=== PATIENT | female | born 1945 | race Caucasian/White ===

== ENCOUNTER 2016-03-09 14:57 | Observation (INO) | payer MEDICARE ==
[2016-03-09] MEDS ORDERED: NITROGLYCERIN OINT 1 INCH/GM PACKET TOPICAL STA (15:29)
[2016-03-09] MEDS ORDERED: ASPIRIN 81 MG CHEW PO STA (15:29)
--- NOTE | 2016-03-09 15:32 | ED ---
General Adult HPI - General Chief complaint: Chest Pain Stated complaint: Chest pain Time Seen by Provider: 03/09/16 15:26 Source: patient, family, RN notes reviewed Mode of arrival: ambulatory Limitations: no limitations - History of Present Illness Initial comments: Patient is a pleasant 70-year-old female presenting to the emergency department complaining of chest discomfort. Onset of symptoms was last night. Symptoms worsened around 3:45 AM. Symptoms are mild at this time. Discomfort was tightness however now is only mild heaviness. There was some radiation towards the right side. No associated nausea or diaphoresis. Patient does feel mildly short of breath. No leg pain or swelling. No cough or fever. - Related Data Home Medications Medication Instructions Recorded Confirmed Albuterol Nebulized [Ventolin 2.5 mg INHALATION RT-Q6H PRN 03/09/16 03/09/16 Nebulized] [id number] 1 - 2 tab PO Q6H PRN 03/09/16 03/09/16 [Excedrin] Budesonide [Pulmicort] 0.5 mg INHALATION RT-BID PRN 03/09/16 03/09/16 Cetirizine HCl [Zyrtec] 10 mg PO DAILY 03/09/16 03/09/16 Diclofenac Sodium/Misoprostol 1 tab PO BID PRN 03/09/16 03/09/16 [Diclofenac-Misoprost 75-200 Tb] Docusate [Colace] 100 mg PO BID PRN 03/09/16 03/09/16 Etanercept [Enbrel] 50 mg SQ WE 03/09/16 03/09/16 Fluticasone Nasal [place] [Flonase 1 - 2 spray EA NOSTRIL BID PRN 03/09/16 Nasal [place]] HYDROcodone/APAP 10-325MG [[place] 1 tab PO QID PRN 03/09/16 03/09/16 10-325] Loperamide HCl [Imodium A-D] 2 - 4 mg PO DAILY PRN 03/09/16 03/09/16 Methocarbamol [Robaxin-750] 750 mg PO TID 03/09/16 03/09/16 Methotrexate Sodium [Methotrexate] 20 mg PO WE 03/09/16 03/09/16 Ondansetron HCl [Zofran] 4 mg PO Q8H PRN 03/09/16 03/09/16 Simethicone [Gas-X] 125 mg PO DAILY PRN 03/09/16 03/09/16 Tiotropium 18 Mcg/Puff [Spiriva] 1 cap INHALATION RT-DAILY 03/09/16 03/09/16 Venlafaxine HCl [Effexor XR] 75 mg PO DAILY 03/09/16 03/09/16 Venlafaxine HCl [Effexor] 37.5 mg PO TID PRN 03/09/16 03/09/16 guaiFENesin [Mucinex] 1,200 mg PO Q12H PRN 03/09/16 03/09/16 Allergies Allergy/AdvReac Type Severity Reaction Status Date / Time No Known Allergies Allergy Verified 03/09/16 15:55 Review of Systems ROS Statement: Those systems with pertinent positive or pertinent negative responses have been documented in the HPI. ROS Other: All systems not noted in ROS Statement are negative. Constitutional: Denies: fever, chills Eyes: Denies: eye pain ENT: Denies: ear pain Respiratory: Reports: dyspnea. Denies: cough Cardiovascular: Reports: chest pain, palpitations (Chronic) Endocrine: Denies: fatigue Gastrointestinal: Reports: diarrhea (Present for 6 weeks, has seen a specialist. ). Denies: abdominal pain Genitourinary: Denies: dysuria Musculoskeletal: Denies: back pain Skin: Denies: rash Neurological: Denies: headache Past Medical History Past Medical History: Hypertension, Osteoarthritis (OA), Rheumatoid Arthritis ( RA) Additional Past Medical History / Comment(s): aortic stenosis hypoglycemia History of Any Multi-Drug Resistant Organisms: None Reported Past Surgical History: Bariatric Surgery, Cholecystectomy Additional Past Surgical History / Comment(s): spinal surg Past Psychological History: No Psychological Hx Reported Smoking Status: Former smoker Past Drug Use History: None Reported General Exam Limitations: no limitations General appearance: alert, in no apparent distress Head exam: Present: atraumatic Eye exam: Present: normal appearance, PERRL ENT exam: Present: normal oropharynx Neck exam: Present: normal inspection Respiratory exam: Present: normal lung sounds bilaterally. Absent: chest wall tenderness Cardiovascular Exam: Present: tachycardia Expanded Peripheral pulses: 2+: Radial (R), Radial (L), Dorsalis Pedis (R), Dorsalis Pedis (L) GI/Abdominal exam: Present: soft. Absent: distended, tenderness Extremities exam: Present: normal inspection. Absent: pedal edema, calf tenderness Neurological exam: Present: alert Psychiatric exam: Present: normal affect, normal mood Skin exam: Absent: rash Course Vital Signs 03/09/16 15:16 Temperature 97.2 F L Pulse Rate 100 Respiratory 18 Rate Blood Pressure 162/81 O2 Sat by Pulse 98 Oximetry EKG Findings - EKG Comments: EKG Findings:: Sinus tachycardia at 1:15. TN 152. QRS 78. QT 326. QTc 450. Normal axis. LVH with repolarization changes. Medical Decision Making - Medical Decision Making Patient reexamined and resting comfortably at bedside. Patient updated on results and plan. Computed tomography scan will be ordered secondary to mildly elevated d-dimer. Dr. Patiño paged for admission. Admission orders written. Consult cardiology. Heparin started. - Lab Data Result diagrams: 03/09/16 15:52 03/09/16 15:52 Lab Results 03/09/16 03/09/16 03/09/16 Range/Units 15:52 15:52 15:52 WBC 6.1 (3.8-10.6) k/uL RBC 4.28 (3.80-5.40) m/uL Hgb 11.4 (11.4-16.0) gm/dL Hct 36.8 (34.0-46.0) % MCV 85.9 (80.0-100.0) fL MCH 26.7 (25.0-35.0) pg MCHC 31.0 (31.0-37.0) g/dL RDW 19.0 H (11.5-15.5) % Plt Count 288 (150-450) k/uL Neutrophils % 63 % Lymphocytes % 24 % Monocytes % 6 % Eosinophils % 4 % Basophils % 1 % Neutrophils # 3.8 (1.3-7.7) k/uL Lymphocytes # 1.5 (1.0-4.8) k/uL Monocytes # 0.4 (0-1.0) k/uL Eosinophils # 0.3 (0-0.7) k/uL Basophils # 0.0 (0-0.2) k/uL Hypochromasia Slight Anisocytosis Slight PT (9.0-12.0) sec INR (<1.1) APTT (22.0-30.0) sec D-Dimer (<0.60) mg/L FEU Sodium 145 (137-145) mmol/L Potassium 4.3 (3.5-5.1) mmol/L Chloride 107 (98-107) mmol/L Carbon Dioxide 25 (22-30) mmol/L Anion Gap 13 mmol/L BUN 23 H (7-17) mg/dL Creatinine 0.79 (0.52-1.04) mg/dL Est GFR (MDRD) Af Amer >60 (>60 ml/min/1.73 sqM) Est GFR (MDRD) Non-Af >60 (>60 ml/min/1.73 sqM) Glucose 153 H (74-99) mg/dL Calcium 8.8 (8.4-10.2) mg/dL Magnesium 1.7 (1.6-2.3) mg/dL Total Bilirubin 0.4 (0.2-1.3) mg/dL AST 26 (14-36) U/L ALT 37 (9-52) U/L Alkaline Phosphatase 98 (38-126) U/L Total Creatine Kinase 53 (30-135) U/L CK-MB (CK-2) 1.6 (0.0-2.4) ng/mL CK-MB (CK-2) Rel Index 3.0 Troponin I <0.012 (0.000-0.034) ng/mL Total Protein 6.4 (6.3-8.2) g/dL Albumin 3.9 (3.5-5.0) g/dL 03/09/16 Range/Units 15:52 WBC (3.8-10.6) k/uL RBC (3.80-5.40) m/uL Hgb (11.4-16.0) gm/dL Hct (34.0-46.0) % MCV (80.0-100.0) fL MCH (25.0-35.0) pg MCHC (31.0-37.0) g/dL RDW (11.5-15.5) % Plt Count (150-450) k/uL Neutrophils % % Lymphocytes % % Monocytes % % Eosinophils % % Basophils % % Neutrophils # (1.3-7.7) k/uL Lymphocytes # (1.0-4.8) k/uL Monocytes # (0-1.0) k/uL Eosinophils # (0-0.7) k/uL Basophils # (0-0.2) k/uL Hypochromasia Anisocytosis PT 10.3 (9.0-12.0) sec INR 1.0 (<1.1) APTT 20.9 L (22.0-30.0) sec D-Dimer 0.66 H (<0.60) mg/L FEU Sodium (137-145) mmol/L Potassium (3.5-5.1) mmol/L Chloride (98-107) mmol/L Carbon Dioxide (22-30) mmol/L Anion Gap mmol/L BUN (7-17) mg/dL Creatinine (0.52-1.04) mg/dL Est GFR (MDRD) Af Amer (>60 ml/min/1.73 sqM) Est GFR (MDRD) Non-Af (>60 ml/min/1.73 sqM) Glucose (74-99) mg/dL Calcium (8.4-10.2) mg/dL Magnesium (1.6-2.3) mg/dL Total Bilirubin (0.2-1.3) mg/dL AST (14-36) U/L ALT (9-52) U/L Alkaline Phosphatase (38-126) U/L Total Creatine Kinase (30-135) U/L CK-MB (CK-2) (0.0-2.4) ng/mL CK-MB (CK-2) Rel Index Troponin I (0.000-0.034) ng/mL Total Protein (6.3-8.2) g/dL Albumin (3.5-5.0) g/dL - Radiology Data Radiology results: image reviewed (Two-view chest x-ray shows no acute process.) Critical Care Time Critical Care Time: Yes Total Critical Care Time: 32 Disposition Clinical Impression: Unstable angina pectoris Disposition: ADMITTED IP TO THIS HOSP
[2016-03-09 16:04] LABS: Anisocytosis Slight; Basophils % (A) 1 %; CH 27.2; CHCM 31.7; Eosinophils # (A) 0.3 k/uL (0-0.7); Eosinophils % (A) 4 %; HCT 36.8 % (34.0-46.0); HGB 11.4 gm/dL (11.4-16.0); Hypochromasia Slight; Luc # (Auto) 0.11; Luc % (Auto) 2; Lymphocytes # (A) 1.5 k/uL (1.0-4.8); Lymphocytes % (A) 24 %; MCH 26.7 pg (25.0-35.0); MCV 85.9 fL (80.0-100.0); Mean Platelet Volume 8.1; Monocytes # (A) 0.4 k/uL (0-1.0); Monocytes % (A) 6 %; Neutrophils # (A) 3.8 k/uL (1.3-7.7); Neutrophils % (A) 63 %; RBC 4.28 m/uL (3.80-5.40); WBC 6.1 k/uL (3.8-10.6); WBC (Perox) 6.14
[2016-03-09 16:13] LABS: ALT 37 U/L (9-52); AST 26 U/L (14-36); Alkaline Phosphatase 98 U/L (38-126); Anion Gap 13 mmol/L; Blood Urea Nitrogen 23 mg/dL (7-17); Calcium 8.8 mg/dL (8.4-10.2); Carbon Dioxide 25 mmol/L (22-30); Chloride 107 mmol/L (98-107); Glucose 153 mg/dL (74-99); Magnesium 1.7 mg/dL (1.6-2.3); Non-African American GFR(MDRD) >60 (>60 ml/min/1.73 sqM); Potassium 4.3 mmol/L (3.5-5.1); Sodium 145 mmol/L (137-145); Total Bilirubin 0.4 mg/dL (0.2-1.3); Total Protein 6.4 g/dL (6.3-8.2)
[2016-03-09 16:15] LABS: Creatine Kinase 53 U/L (30-135)
--- NOTE | 2016-03-09 16:23 | XR ---
EXAMINATION TYPE: XR chest 2V DATE OF EXAM: 03/09/2016 4:06 PM COMPARISON: NONE HISTORY: chest pain TECHNIQUE: Frontal and lateral views of the chest are obtained. FINDINGS: There is no focal air space opacity, pleural effusion, or pneumothorax seen. The cardiac silhouette size is within normal limits. The osseous structures are intact. IMPRESSION: No acute cardiopulmonary process.
[2016-03-09 16:26] LABS: Prothrombin Time 10.3 sec (9.0-12.0)
[2016-03-09 16:27] LABS: Partial Thromboplastin Time 20.9 sec (22.0-30.0)
[2016-03-09] MEDS ORDERED: RX INFO: IV CONTRAST WAS GIVEN 1 EACH MISC MISCELLANE PRN (16:27)
[2016-03-09 16:28] LABS: Creatine Kinase MB 1.6 ng/mL (0.0-2.4); Troponin I <0.012 ng/mL (0.000-0.034)
[2016-03-09] MEDS ORDERED: HEPARIN SODIUM,PORCINE 5,000 UNIT/ML 1 ML VIAL IV PRN (16:36)
[2016-03-09] MEDS ORDERED: NITROGLYCERIN SL TABS 0.4 MG TAB SUBLINGUAL PRN (16:36)
[2016-03-09] MEDS ORDERED: HEPARIN SODIUM,PORCINE 5,000 UNIT/ML 1 ML VIAL IV ONE (16:36)
[2016-03-09] MEDS: HEPARIN SODIUM,PORCINE/D5W PMX 25,000 UNIT in DEXTROSE/WATER 1 500ML.BAG IV SCH (17:18)
[2016-03-09] MEDS: NITROGLYCERIN OINT 1 INCH/GM PACKET TOPICAL SCH (18:10)
[2016-03-09 18:32] VITALS: BMI 34.3
--- NOTE | 2016-03-09 18:56 | CT ---
EXAMINATION TYPE: CT angio chest DATE OF EXAM: 03/09/2016 6:29 PM COMPARISON: NONE HISTORY: Patient complains of bilateral upper quadrant pain, nausea, and vomit ting CT DLP: 316 mGycm Automated exposure control for dose reduction was used. CONTRAST: CTA scan of the thorax is performed with IV Contrast, patient injected with 100 mL of Omnipaque 350, pulmonary embolism protocol. MIP images are created and reviewed. 3D reconstructed images are creat ed on an independent workstation and reviewed. FINDINGS: LUNGS: The lungs are grossly clear, there is no concerning parenchymal mass or nodule identified. T here is no pleural effusion or pneumothorax seen. The tracheobronchial tree is patent. MEDIASTINUM: There is satisfactory enhancement of the pulmonary artery and its branches, there is no CT evidence for pulmonary embolism. There are no greater than 1 cm hilar or mediastinal lymph nodes. No pericardial effusion is seen. Coronary calcifications are noted, in addition to mitral valve pl ane and aortic valve plane calcifications. OTHER: No additional significant abnormality is seen. IMPRESSION: NEGATIVE FOR PULMONARY EMBOLISM OR OTHER ACUTE PROCESS.
[2016-03-09] MEDS ORDERED: LORATADINE 10 MG TAB PO PRN (21:04)
[2016-03-09] MEDS ORDERED: ASPIRIN-ACET-CAFF 250-250-65MG 1 EACH TAB PO PRN (21:06)
[2016-03-09] MEDS ORDERED: VENLAFAXINE HCL ER 75 MG CAP PO SCH (21:15)
[2016-03-09] MEDS: METHOCARBAMOL 750 MG TAB PO SCH (22:31)
[2016-03-09] MEDS: ETODOLAC 400 MG TAB PO SCH (22:31)
[2016-03-09] MEDS: guaiFENesin 600 MG TABLET.ER PO SCH (22:33)
[2016-03-09] MEDS: MISOPROSTOL 200 MCG TAB PO SCH (22:33)
[2016-03-09 23:36] LABS: Creatine Kinase 53 U/L (30-135)
[2016-03-09 23:50] LABS: Creatine Kinase MB 1.5 ng/mL (0.0-2.4); Troponin I <0.012 ng/mL (0.000-0.034)
[2016-03-10] MEDS: NITROGLYCERIN OINT 1 INCH/GM PACKET TOPICAL SCH ×4 (00:35→16:56)
[2016-03-10 04:55] LABS: Mean Platelet Volume 8.1
[2016-03-10 05:11] LABS: Cholesterol 128 mg/dL (<200); HDL Cholesterol 53 mg/dL (40-60); Triglycerides 120 mg/dL (<150)
[2016-03-10 05:30] LABS: Creatine Kinase 42 U/L (30-135)
[2016-03-10 05:44] LABS: Creatine Kinase MB 1.2 ng/mL (0.0-2.4); Troponin I <0.012 ng/mL (0.000-0.034)
[2016-03-10] MEDS ORDERED: ASPIRIN 325 MG TAB PO SCH (09:00)
[2016-03-10] MEDS: ETODOLAC 400 MG TAB PO SCH (09:02)
[2016-03-10] MEDS: METHOCARBAMOL 750 MG TAB PO SCH (09:02)
[2016-03-10] MEDS: MISOPROSTOL 200 MCG TAB PO SCH (09:02)
[2016-03-10] MEDS: guaiFENesin 600 MG TABLET.ER PO SCH (09:02)
--- NOTE | 2016-03-10 09:34 | P.CRDCN ---
History of Present Illness Consult date: 03/10/16 History of present illness: This is a 70-year-old female who lives in [place] came to visit this area about a month ago. Patient had a recent back surgery and apparently had a cardiac evaluation with echocardiogram and a stress test prior to the surgery. She was told that she had mild to moderate aortic stenosis and apparently also told to have a normal stress test and was cleared for surgery. Patient had no problem with surgery and has been doing well. About 2 days ago, patient woke up at night with squeezing discomfort in the middle of the chest radiating down the breast to the right arm and also to the back down to the sacral area. Apparently this discomfort lasted for about 3 minutes and then subsided spontaneously. Since then the patient hasn't had any recurrence of this discomfort but has been having bouts of fluttering in the heart which apparently is a chronic problem. Her EKG here did not reveal any acute changes but but captured an episode of SVT with a rate of about 120. Patient has been stable since admission here. She has been having loose bowel movements which has been a problem for a long time. I'm going to get copies of the recent testing. I may get an echocardiogram to assess LV function and also aortic valve stenosis. If she remains stable and echo shows normal LV function without any critical aortic stenosis, patient could be discharged home to have follow-up with her program lead. I'm also starting him on small dose of verapamil for control of supraventricular arrhythmias. Review of Systems As per the chart Past Medical History Past Medical History: Hypertension, Osteoarthritis (OA), Rheumatoid Arthritis ( RA) Additional Past Medical History / Comment(s): aortic stenosis hypoglycemia History of Any Multi-Drug Resistant Organisms: None Reported Past Surgical History: Bariatric Surgery, Cholecystectomy, Hysterectomy Additional Past Surgical History / Comment(s): back surgery with rods Past Anesthesia/Blood Transfusion Reactions: No Reported Reaction Past Psychological History: Depression Smoking Status: Former smoker Past Drug Use History: None Reported - Past Family History Mother Family Medical History: CVA/TIA Father Family Medical History: CVA/TIA Medications and Allergies Home Medications Medication Instructions Recorded Confirmed Type Albuterol Nebulized [Ventolin 2.5 mg INHALATION RT-Q6H PRN 03/09/16 03/09/16 History Nebulized] [id number]-[id number]-[id number] [id number] 1 - 2 tab PO Q6H PRN 03/09/16 03/09/16 History [Excedrin] Budesonide [Pulmicort] 0.5 mg INHALATION RT-BID PRN 03/09/16 03/09/16 History Cetirizine HCl [Zyrtec] 10 mg PO DAILY 03/09/16 03/09/16 History Diclofenac Sodium/Misoprostol 1 tab PO BID PRN 03/09/16 03/09/16 History [Diclofenac-Misoprost 75-200 Tb] Docusate [Colace] 100 mg PO BID PRN 03/09/16 03/09/16 History Etanercept [Enbrel] 50 mg SQ WE 03/09/16 03/09/16 History Fluticasone Nasal [place] [Flonase 1 - 2 spray EA NOSTRIL BID PRN 03/09/16 History Nasal [place]] HYDROcodone/APAP 10-325MG [[place] 1 tab PO QID PRN 03/09/16 03/09/16 History 10-325] Loperamide HCl [Imodium A-D] 2 - 4 mg PO DAILY PRN 03/09/16 03/09/16 History Methocarbamol [Robaxin-750] 750 mg PO TID 03/09/16 03/09/16 History Methotrexate Sodium [Methotrexate] 20 mg PO WE 03/09/16 03/09/16 History Ondansetron HCl [Zofran] 4 mg PO Q8H PRN 03/09/16 03/09/16 History Simethicone [Gas-X] 125 mg PO DAILY PRN 03/09/16 03/09/16 History Tiotropium 18 Mcg/Puff [Spiriva] 1 cap INHALATION RT-DAILY 03/09/16 03/09/16 History Venlafaxine HCl [Effexor XR] 75 mg PO DAILY 03/09/16 03/09/16 History Venlafaxine HCl [Effexor] 37.5 mg PO TID PRN 03/09/16 03/09/16 History guaiFENesin [Mucinex] 1,200 mg PO Q12H PRN 03/09/16 03/09/16 History predniSONE 5 mg PO BID 03/09/16 03/09/16 History Allergies Allergy/AdvReac Type Severity Reaction Status Date / Time No Known Allergies Allergy Verified 03/09/16 15:55 Physical Exam Vitals: Vital Signs Temp Pulse Pulse Pulse Pulse Resp BP 03/10/16 08:00 71 18 03/10/16 07:55 97.7 F 71 18 03/10/16 04:00 97 F L 82 16 03/10/16 03:50 70 18 03/10/16 00:00 97.5 F L 88 92 18 03/09/16 20:00 88 16 03/09/16 19:29 95 16 03/09/16 17:47 98.0 F 58 L 18 03/09/16 17:09 98.4 F 77 16 116/56 03/09/16 16:56 97.7 F 90 16 150/80 BP BP Pulse Ox 03/10/16 08:00 03/10/16 07:55 136/65 99 03/10/16 04:00 137/68 98 03/10/16 03:50 03/10/16 00:00 137/67 99 03/09/16 20:00 03/09/16 19:29 170/85 100 03/09/16 17:47 177/83 93 L 03/09/16 17:09 98 03/09/16 16:56 98 Intake and Output 03/09/16 03/10/16 03/10/16 22:59 06:59 14:59 Intake Total 222 1032.603 Balance 222 1032.603 Intake: IV 505 0.9 NS @ KVO 240 Heparin Sodium,Porcine/ 265 D5w Pmx 25,000 unit In Dextrose/Water 1 500ml. bag @ 11.42 UNITS/KG/HR 19.99 mls/hr IV .Q24H VELIA Rx#:[id number] Intake, IV Titration 127.603 Amount Heparin Sodium,Porcine/ 127.603 D5w Pmx 25,000 unit In Dextrose/Water 1 500ml. bag @ 11.42 UNITS/KG/HR 19.99 mls/hr IV .Q24H VELIA Rx#:[id number] Oral 222 400 Other: Voiding Method Toilet # Voids 2 # Bowel Movements 1 Weight 88 kg GENERAL EXAM: Patient is alert and oriented and doesn't appear to be in any acute distress HEENT: Normocephalic. Normal reaction of pupils, equal size, normal range of extraocular motion. No erythema or exudates in the throat. NECK: No masses, no nuchal rigidity. CHEST: No chest wall deformity. LUNGS: Equal air entry with no crackles or wheeze. HEART: S1 and S2 normal with systolic murmur in the aortic area ABDOMEN: No hepatosplenomegaly, normal bowel sounds, no guarding or rigidity. SKIN: No rashes CENTRAL NERVOUS SYSTEM: No focal deficits. EXTREMITIES: No cyanosis, clubbing or edema. Results 03/10/16 04:09 03/09/16 15:52 Cardiac Enzymes 03/09/16 03/10/16 Range/Units 22:42 04:09 CK-MB (CK-2) 1.5 1.2 (0.0-2.4) ng/mL Troponin I <0.012 <0.012 (0.000-0.034) ng/mL Coagulation 03/09/16 03/10/16 Range/Units 22:42 04:09 APTT 33.2 H 61.6 H (22.0-30.0) sec Lipids 03/10/16 Range/Units 04:09 Triglycerides 120 (<150) mg/dL Cholesterol 128 (<200) mg/dL HDL Cholesterol 53 (40-60) mg/dL CBC 03/10/16 Range/Units 04:09 Plt Count 217 (150-450) k/uL Current Medications Generic Name Dose Route Start Last Admin Trade Name Freq PRN Reason Stop Dose Admin Acetaminophen/Aspirin/Caffeine 1 each 03/09/16 21:06 Excedrin PO Q4HR PRN Headache Aspirin 325 mg 03/10/16 09:00 Aspirin PO DAILY VELIA Etodolac 400 mg 03/09/16 21:15 03/10/16 09:02 Lodine PO 400 mg BID VELIA Administration Guaifenesin 1,200 mg 03/09/16 21:15 03/10/16 09:02 Mucinex PO 1,200 mg DAILY VELIA Administration Heparin Sodium (Porcine) 0 unit 03/09/16 16:36 03/09/16 23:41 Heparin IV 4,000 unit Q6HR PRN Administration Low PTT Protocol Heparin Sodium/Dextrose 25,000 500 mls @ 19.99 mls/hr 03/09/16 16:45 23:41 unit/ IV Solution IV 14.42 units/kg/hr .Q24H VELIA 25.24 mls/hr Protocol Titration 11.42 UNITS/KG/HR Loratadine 10 mg 03/09/16 21:04 03/09/16 23:37 Claritin PO 10 mg DAILY PRN Administration Congestion Methocarbamol 750 mg 03/09/16 21:15 03/10/16 09:02 Robaxin PO 750 mg BID VELIA Administration Miscellaneous Information 1 each 03/09/16 16:27 03/09/16 16:34 Rx Info: Iv Contrast Was Given MISCELLANE 03/11/16 16:27 1 each DAILY PRN Administration Per Protocol Misoprostol 200 mcg 03/09/16 21:15 03/10/16 09:02 Cytotec PO 200 mcg BID VELIA Administration Nitroglycerin 1 inch 03/09/16 18:00 03/10/16 05:43 Nitro-Bid Oint TOPICAL Not Given Q6HR [facility] Nitroglycerin 0.4 mg 03/09/16 16:36 Nitrostat SUBLINGUAL Q5M PRN Chest Pain Sodium Chloride 10 ml 03/09/16 21:00 03/10/16 09:03 Saline Flush IV Not Given BID [facility] Venlafaxine HCl 75 mg 03/09/16 21:15 03/09/16 22:31 Effexor Xr PO 75 mg HS VELIA Administration Verapamil HCl 40 mg 03/10/16 09:30 Isoptin PO TID [facility] Intake and Output 03/09/16 03/10/16 03/10/16 22:59 06:59 14:59 Intake Total 222 1032.603 Balance 222 1032.603 Intake: IV 505 0.9 NS @ KVO 240 Heparin Sodium,Porcine/ 265 D5w Pmx 25,000 unit In Dextrose/Water 1 500ml. bag @ 11.42 UNITS/KG/HR 19.99 mls/hr IV .Q24H VELIA Rx#:[id number] Intake, IV Titration 127.603 Amount Heparin Sodium,Porcine/ 127.603 D5w Pmx 25,000 unit In Dextrose/Water 1 500ml. bag @ 11.42 UNITS/KG/HR 19.99 mls/hr IV .Q24H VELIA Rx#:[id number] Oral 222 400 Other: Voiding Method Toilet # Voids 2 # Bowel Movements 1 Weight 88 kg 03/10/16 04:09 EKG Interpretations (text) Sinus rhythm with this bout of SVT could be atrial tachycardia Assessment and Plan (1) Chest pain Status: Acute (2) History of aortic stenosis Status: Acute (3) SVT (supraventricular tachycardia) Status: Acute (4) History of hypertension Status: Acute (5) Rheumatoid arthritis Status: Acute Plan: This patient is stable since admission here. She had one brief episode of chest pain and has been stable since then. The chest pain appears to be atypical. Cardiac enzymes and EKGs are negative for ischemia. Computed tomography scan is negative for pulmonary emboli and I'm going to get an echocardiogram to assess LV function and also aortic valve. If there is no significant abnormality on the about test, patient could be discharged home to have follow-up with her program lead. We'll also try to get results of the various tests from her program lead .
[2016-03-10] MEDS: VERAPAMIL 40 MG TAB PO SCH ×2 (10:35→16:57)
[2016-03-10 12:04] VITALS: RESP 16; TEMP 98
--- NOTE | 2016-03-10 12:28 | ECHOF ---
Referral Reason:Chest pain and cardiomyopathy MEASUREMENTS -------- HEIGHT: 160.0 cm WEIGHT: 88.0 kg BP: IVSd: 1.2 cm (0.6 - 1.1) LVIDd: 2.6 cm (3.9 - 5.3) LVPWd: 1.1 cm (0.6 - 1.1) IVSs: 1.7 cm LVIDs: 1.4 cm LVPWs: 1.7 cm Ao Diam: 3.3 cm (2.0 - 3.7) AV Cusp: 1.4 cm (1.5 - 2.6) LA Diam: 2.5 cm (2.7 - 3.8) MV EXCURSION: 14.924 mm (> 18.000) MV EF SLOPE: 62 mm/s (70 - 150) EPSS: 0.7 cm MV E Paulo: 0.86 m/s MV DecT: 143 ms MV A Paulo: 1.26 m/s MV E/A Ratio: 0.68 AV maxP.39 mmHg AV meanP.77 mmHg AR PHT: 337 ms RAP: 5.00 mmHg RVSP: 33.76 mmHg FINDINGS -------- Sinus rhythm. This was a technically good study. There is borderline concentric left ventricular hypertrophy. Overall left ventricular systolic function is normal with, an EF between 55 - 60 %. The right ventricle is normal in size and function. The left atrium is normal in size. The right atrium is normal in size. Trace amount of aortic regurgitation. There is mild aortic stenosis present. Peak/mean gradient across the Aortic Valve is 20.39mmHg / 12.77mmHg. The mitral valve leaflets are mildly thickened. Mild mitral annular calcification present. Mild mitral regurgitation is present. Mild tricuspid regurgitation present. The right ventricular systolic pressure, as measured by Doppler, is 33.76mmHg. Pulmonic valve appears structurally normal. The aortic root size is normal. The pericardium is normal. CONCLUSIONS -------- 1. Sinus rhythm. 2. Peak/mean gradient across the Aortic Valve is 20.39mmHg / 12.77mmHg. 3. The mitral valve leaflets are mildly thickened. 4. Mild mitral annular calcification present. 5. Mild mitral regurgitation is present. 6. Mild tricuspid regurgitation present. 7. The right ventricular systolic pressure, as measured by Doppler, is 33.76mmHg. 8. Pulmonic valve appears structurally normal. 9. The aortic root size is normal. 10. The pericardium is normal. 11. This was a technically good study. 12. There is borderline concentric left ventricular hypertrophy. 13. Overall left ventricular systolic function is normal with, an EF between 55 - 60 %. 14. The right ventricle is normal in size and function. 15. The left atrium is normal in size. 16. The right atrium is normal in size. 17. Trace amount of aortic regurgitation. 18. There is mild aortic stenosis present. ICING MACHINE OPERATOR: Stefany Acosta RDCS
[2016-03-10 16:12] VITALS: BP 115/58; PULSE 85
[2016-03-10] MEDS: HEPARIN SODIUM,PORCINE/D5W PMX 25,000 UNIT in DEXTROSE/WATER 1 500ML.BAG IV SCH (16:57)
--- NOTE | 2016-03-10 20:52 | HP ---
CHIEF COMPLAINT: Chest pain. HISTORY OF PRESENT ILLNESS: Ms. Mendoza is a 70-year-old female with known history of hypertension, osteoarthritis and rheumatoid arthritis and history of mild to moderate aortic stenosis, came in with a complaint of chest pain lasting about 3 minutes in the retrosternal area, originating on the left side. Patient woke up at night and felt some heaviness in the chest and radiating down the right arm and right side of the chest and into the back. Patient denied any further episodes of chest pain. Patient came to the hospital for further evaluation. Otherwise, patient also found to have SVTs on tele monitoring. Cardiology has seen the patient and the patient was started on ( ) at this time. Otherwise, the patient says that she had a negative stress test done for a preop evaluation for back surgery. Currently the patient is chest pain free. No new history of fever or chills. No sick contacts at home. Patient does have a history of remote smoking and COPD. Patient also exposed to secondhand smoking, as per the patient. Otherwise no fever, no chills. No recent illnesses. REVIEW OF SYSTEMS: CONSTITUTIONAL: No fever. No chills. RESPIRATORY: No cough or sputum production. CARDIOVASCULAR: No chest pain or shortness of breath. ABDOMEN: No nausea, vomiting, abdominal pain. GENITOURINARY: Negative. ENDOCRINE: Negative. PSYCHIATRIC: Negative. SKIN: Negative. All other 14-point review of systems negative except as above. Past medical history includes hypertension, osteoarthritis, rheumatoid arthritis, aortic stenosis and hypoglycemia. PAST SURGICAL HISTORY: Bariatric surgery, cholecystectomy, hysterectomy, back surgery with rods. PSYCHOSOCIAL HISTORY: Depression. SOCIAL HISTORY: Patient is a former smoker; quit smoking several years ago. Denied any alcohol. Denied any drugs or IVDU. FAMILY HISTORY: Mother had CVA and father had a CVA/TIA. Home medications include: 1. Ventolin. 2. Excedrin. 3. Pulmicort. 4. Zyrtec. 5. Diclofenac sodium. 6. Colace. 7. Enbrel. 8. Fluticasone nasal spray. 9. [place] 10. 10. Imodium. 11. Robaxin. 12. Methotrexate. 13. Zofran. 14. Gas-X. 15. Spiriva. 16. Effexor XR. 17. Mucinex. 18. Prednisone. No known drug allergies. PHYSICAL EXAMINATION: A 70-year-old female lying in the bed comfortably; alert and oriented x3,. Patient in no apparent distress. VITALS: Blood pressure is 137/68, pulse is 82, respirations 16, temperature afebrile, pulse ox 98% on room air. HEENT: Atraumatic, normocephalic. Neck is supple. No JVD. CVS: S1, S2 heard. No murmurs. No gallop. No rub. LUNGS: Bilateral air entry is present. No wheezing. No crackles. Nonlabored breathing. ABDOMEN: Soft, nontender. Bowel sounds present. VIDEO GAMES MECHANIC: Alert and oriented x3. No focal deficits. Cranial nerves grossly intact. EXTREMITIES: No edema. Pulses palpable bilaterally. No clubbing or cyanosis. PSYCHIATRIC: Cooperative. LABORATORY DATA: WBC 6.1, hemoglobin 11.4, platelets 288. D-dimer is 0.66. Sodium 145, potassium 4.3, chloride 107, bicarb is 25, BUN 23, creatinine 0.79. Liver enzymes within normal limits. Serial EKGs are negative and serial troponins are negative. LDL is 51. EKGs are normal sinus rhythm. Chest x-ray: No acute cardiopulmonary process. CT angiogram of the chest negative for pulmonary embolism or acute process. IMPRESSION: 1. Chest pain/angina. Will rule out acute coronary syndrome. Continue with cardiac telemetry monitoring and serial EKGs and troponins. Cardiology has been consulted and recommended 2-D echocardiogram in detail. 2. History of mild to moderate aortic stenosis as per the echocardiogram done for preoperative evaluation prior to back surgery. 3. Chronic back pain. 4. Supraventricular tachycardia. 5. History of hypertension. 6. Rheumatoid arthritis. 7. Chronic obstructive pulmonary disease with remote history of smoking. 8. History of hypoglycemia. 9. Degenerative joint disease. DISCUSSION AND PLAN: This 70-year-old female was admitted to the hospital with a complaint of chest pain. Cardiology has seen the patient and recommended 2-D echocardiogram. Serial EKGs and troponins are negative. Will continue tele monitoring. Further recommendations based on the clinical course.
--- NOTE | 2016-03-11 18:48 | DS ---
DATE OF ADMISSION: 03/09/2016 DATE OF DISCHARGE: 03/10/2016 DISCHARGE DIAGNOSES: 1. Chest pain/angina, ruled out acute coronary syndrome. 2. Mild to moderate aortic stenosis. 3. Degenerative joint disease. 4. Hypertension. 5. Rheumatoid arthritis. 6. Chronic back pain and surgery 7. Supraventricular tachycardia. HOSPITAL COURSE: Ms. Mendoza is a 70 -year-old female with known history of chronic obstructive pulmonary disease with hypertension, osteoarthritis and aortic stenosis, mild to moderate as per the 2D echo done for preop evaluation for back surgery, was admitted into the hospital with complaints of chest pain and because of chest pain patient was seen by cardiology and had EKG and serial troponins were done. The patient was monitored closely in the hospital by telemetry. Otherwise, the patient seen by cardiology and recommended a 2-D echocardiogram which was done and showed no ( ). Normal ejection fraction. Otherwise, the patient is chest pain free now. He is cleared for discharge from cardiology standpoint. Discharge physical examination: On clinical exam the patient is a 70 -year-old female lying in bed comfortably. Awake, alert, oriented, x3, appears to be in no apparent distress. VITALS: Blood pressure 115/58, pulse is 85, respirations 16, temperature afebrile, pulse ox 99% on room air. HEENT: Atraumatic, normocephalic. Neck is supple. No JVD. CARDIOVASCULAR: S1, S2 heard. No murmurs or gallop, no rub. LUNGS: Bilateral air entry is present. No wheezing, no crackles. ABDOMEN: Soft, nontender. Bowel sounds present. CENTRAL NERVOUS SYSTEM: Awake, alert and oriented x3. No focal neurologic deficits. Cranial nerves grossly intact. EXTREMITIES: No edema. Pulses palpable bilaterally. No clubbing or cyanosis. PSYCHIATRY: Cooperative. LABORATORY DATA: Reviewed. patient was found to have SVT during hospital stay with heart rate around 120 and has been stable since then. The patient was started on Verapamil 40 mg t.i.d. Discharge PHYSICAL EXAMINATION done. Laboratory data reviewed. Discharge medications include: 1. Ventolin 2.5 mg inhalation q.6 hourly p.r.n. for short of breath. 2. Excedrin 1-2 tablets p.o. q6 hourly p.r.n. for pain. 3. ( ) 0.5 mg inhalation ( ) b.i.d. 4. Zyrtec 10 mg p.o. daily. 5. Diclofenac ( ) 200, 1 tablet p.o. b.i.d. p.r.n. for pain. 6. Docusate 100 mg p.o. b.i.d. 7. Enbrel 50 mg subcu Wednesday. 8. Fluticasone nasal spray 1 to 2 sprays each nostril b.i.d. 9. [place] 10 1 tablets p.o. q.i.d. p.r.n. for pain. 10. ( ) mg p.o. daily for diarrhea. 11. Robaxin 750 mg p.o. t.i.d. 12. Methotrexate 20 mg p.o. Wednesday. 13. Zofran 4 mg q.8 hourly p.r.n. for nausea, vomiting. 14. Simethicone 125 mg p.o. daily p.r.n. for constipation. 15. ( ) daily. 16. Effexor XR 75 mg p.o. daily. 17. Effexor 37.5 mg p.o. t.i.d. p.r.n. 18. Mucinex 1200 milligrams p.o. q.12 hours p.r.n. 19. Prednisone 5 mg p.o. b.i.d. 20. ( ) 40 mg p.o. t.i.d. The patient will be discharged home in stable condition. Heart healthy diet. Activity as tolerated and follow with primary care physician in one to two days. Home with self-care. Patient to follow with her community outreach advocate in [place].
== END 2016-03-10 17:57 | disposition home or self-care (01) ==
LOC: EC 14:57 → 3OBS 16:36
PROVIDERS: ADMIT Internal Medicine; ATTEND Internal Medicine
DX: R07.89 Other chest pain (principal); I35.0 Nonrheumatic aortic (valve) stenosis; M19.90 Unspecified osteoarthritis, unspecified site; I10 Essential (primary) hypertension; I47.1 Supraventricular tachycardia; M54.9 Dorsalgia, unspecified; G89.29 Other chronic pain; M06.9 Rheumatoid arthritis, unspecified; J44.9 Chronic obstructive pulmonary disease, unspecified; Z98.84 Bariatric surgery status; Z87.891 Personal history of nicotine dependence; Z79.899 Other long term (current) drug therapy; Z82.3 Family history of stroke
CPT/HCPCS: 99291; 96376; 36415; 93005; 93306; 85379; 80061; 80053; 82550 ×2; 82553 ×2; 83735; 84484 ×2; 85025; 85049; 85610; 85730 ×2; 80299; 71020; 71275; G0378 ×2; J1644 ×2; Q9967; S0191 ×2; 87324; 96366